=== PATIENT | female | born 1980 | race Caucasian/White ===

== ENCOUNTER → 2016-08-02 | Outpatient (CLI) | payer BC, OTHER ==
--- NOTE | 2016-08-02 08:46 | DIAGNOSTIC IMAGING REPORT ---
RIGHT FOOT MIN 3 VIEWS CLINICAL HISTORY: BILATERAL HEEL PAIN Right COMPARISON: None. DISCUSSION: Small heel spur. All remaining osseous structures are unremarkable. Alignment is anatomic. Subtalar joint is unremarkable. There is no evidence for soft tissue swelling. IMPRESSION: Small heel spur. Otherwise negative study Electronically signed by: Sarbjit Plascencia M.D. 08/02/2016 8:44 AM Dictated Date/Time: 08/02/2016 8:44 AM
--- NOTE | 2016-08-02 08:47 | DIAGNOSTIC IMAGING REPORT ---
LEFT FOOT MIN 3 VIEWS CLINICAL HISTORY: BILATERAL HEEL PAIN COMPARISON: None. DISCUSSION: The bones and joint spaces appear intact. There is no evidence of fracture, dislocation or bony disease. There is no evidence for soft tissue swelling. IMPRESSION: Negative study. Electronically signed by: Sarbjit Plascencia M.D. 08/02/2016 8:46 AM Dictated Date/Time: 08/02/2016 8:45 AM
== END | disposition home or self-care (01) ==
LOC: C.RDSM 08:24
PROVIDERS: ATTEND Family Medicine
DX: M79.672 Pain in left foot (principal); M77.31 Calcaneal spur, right foot

== ENCOUNTER → 2016-09-25 | Outpatient (CLI) | payer OTHER ==
--- NOTE | 2016-09-25 09:10 | DIAGNOSTIC IMAGING REPORT ---
LEFT LOWER EXT NONJOINT W/O HISTORY:35 yearsFemaleleft sided FOREFOOT PAIN X 6 MOS without reported trauma COMPARISON: Left foot radiographs 08/02/2016. TECHNIQUE: Short and long axis TI and STIR with sagittal T1 and STIR noncontrast MR images of the left foot were obtained. FINDINGS: Markers are placed along the plantar and dorsal margins of the first metatarsophalangeal joint in the first web space. No significant degenerative changes of the first MTP joint are seen. Signal of the sesamoids appears normal without evidence suggest sesamoiditis. There is trace fluid within the first, second and third web spaces which is greatest in the first. No evidence of Christensen neuroma. The plantar plates are intact. There is mild amount of bone marrow edema involving the volar aspect of the base of the second metatarsal seen nicely in image 26 of the axial STIR and image 5 of the coronal STIR. No associated fracture or significant degenerative changes. Otherwise, the bone marrow signal throughout the midfoot appears normal. Midfoot alignment is anatomic on this nonweightbearing study. The interosseous component of the Lisfranc ligament is identified and is intact. Soft tissues appear to be unremarkable. IMPRESSION: 1. Skin markers placed about the first metatarsophalangeal joint without evidence of focal bone marrow edema, significant degenerative changes, soft tissue injury or fracture. 2. Minimal bone marrow edema involving the volar aspect of the base of the second metatarsal may be reactive or post-traumatic. 3. Trace fluid within the first webspace may reflect developing intermetatarsal bursitis. 4. No evidence of perineural fibrosis. The above report was generated using voice recognition software. It may contain grammatical, syntax or spelling errors. Electronically signed by: Filiberto Leal M.D. 09/25/2016 9:09 AM Dictated Date/Time: 09/25/2016 8:58 AM
== END | disposition home or self-care (01) ==
LOC: C.MRI 07:57
PROVIDERS: ATTEND Family Medicine
DX: M72.2 Plantar fascial fibromatosis (principal); M79.672 Pain in left foot

== ENCOUNTER → 2016-11-27 | Outpatient (CLI) | payer OTHER | END | disposition home or self-care (01) | LOC: C.PAPS 13:50 | PROVIDERS: ATTEND Obstetrics & Gynecology | DX: Z12.4 Encounter for screening for malignant neoplasm of cervix (principal); Z87.898 Personal history of other specified conditions ==